=== PATIENT | male | born 1975 | race Hispanic/Latino ===

== ENCOUNTER 2019-05-17 18:59 | Emergency (ER) | payer OTHER ==
[2019-05-17] MEDS ORDERED: ORPHENADRINE CITRATE 30 MG/ML ML ONE (19:21)
== END 2019-05-17 20:13 | disposition home or self-care (01) ==
LOC: EDH 18:59
DX: S60.512A Abrasion of left hand, initial encounter (principal); M62.838 Other muscle spasm; V49.49XA Driver injured in collision with other motor vehicles in traffic accident, initial encounter; Y93.89 Activity, other specified; Y92.89 Other specified places as the place of occurrence of the external cause; Y99.8 Other external cause status
CPT/HCPCS: 73130; 96372; 99284; J2360